=== PATIENT | male | born 1965 | race Caucasian/White ===

== ENCOUNTER 2025-09-10 05:14 | Inpatient (IN) | payer MEDICARE, MEDICAID ==
[2025-09-10 06:00] LABS: #Basophils 0.08 10x3/uL (0.0-0.2); #Eosinophils 0.17 10x3/uL (0.0-0.7); #Monocytes 0.89 10x3/uL (0.11-0.59); #Neutrophils 7.85 10x3/uL (1.40-6.50); %Basophils 0.8 % (0.0-1.0); %Eosinophils 1.6 % (0.0-10.0); %Lymphocytes 14.9 % (21.0-51.0); %Monocytes 8.4 % (0.0-10.0); %Neutrophils 73.7 % (42.0-75.0); Hematocrit 38.6 % (42.0-52.0); Hemoglobin 12.3 g/dL (14.0-18.0); Mean Corpuscular Hemoglobin 28.4 pg (27.0-31.0); Mean Corpuscular Volume 89.1 fL (78.0-98.0); Platelet Count 267 10x3/uL (130-400); Red Blood Cell (RBC) Count 4.33 mill/uL (4.70-6.10); White Blood Cell (WBC) Count 10.64 10x3/uL (4.8-10.8)
[2025-09-10 06:16] LABS: ALT (SGPT) 7 U/L (Less than 45); AST (SGOT) 23 U/L (11-34); Albumin 3.8 g/dL (3.1-4.5); Alkaline Phosphatase 70 U/L (40-110); Anion Gap 16 mmol/L (10-20); BUN (Urea Nitrogen) 11 mg/dL (8.4-25.7); Bilirubin, Total 0.5 mg/dL (0.3-1.2); Calc. Creatinine Clearance 0 mL/min (70-130); Calcium 9.4 mg/dL (7.8-10.44); Carbon Dioxide 25 mmol/L (22-29); Chloride 98 mmol/L (98-107); Globulin 3.6 g/dL (2.4-3.5); Glucose 116 mg/dL (70-105); Potassium 4.6 mmol/L (3.5-5.1); Sodium 134 mmol/L (136-145)
[2025-09-10] MEDS ORDERED: Albuterol 2.5 MG (3 mL) NEB ONE (06:25)
[2025-09-10] MEDS ORDERED: cefTRIAXone (ROCEPHIN) 2 GM VIAL ONE (07:22)
[2025-09-10] MEDS ORDERED: Ketorolac Tromethamine 30 MG (1 mL) VIAL ONE (07:56)
[2025-09-10] MEDS ORDERED: Acetaminophen 325 MG TAB PO PRN (08:48)
[2025-09-10] MEDS ORDERED: Calcium Carbonate 500 MG ChewTAB PO PRN (08:48)
[2025-09-10] MEDS ORDERED: Senokot S 8.6-50 MG TAB PO PRN (08:48)
[2025-09-10] MEDS ORDERED: Melatonin 3 MG TAB PO PRN (08:48)
[2025-09-10] MEDS ORDERED: Ondansetron PF 4 MG/2 ML Vial IVP PRN (08:48)
[2025-09-10 09:02] VITALS: BMI 29.9
[2025-09-10] MEDS: Famotidine 20 MG TAB PO SCH (09:55)
[2025-09-10] MEDS: Aspirin 81 mg Enteric Coated Tablet PO SCH (09:55)
[2025-09-10] MEDS: Divalproex Sodium 250 MG DR.TAB PO SCH (09:55)
[2025-09-10] MEDS ORDERED: Divalproex Sodium 250 MG DR.TAB ONE (10:04)
[2025-09-10] MEDS ORDERED: Aspirin Chewable 81 MG TAB ONE (10:05)
[2025-09-10] MEDS ORDERED: Famotidine 20 MG TAB ONE (10:05)
[2025-09-10] MEDS ORDERED: Lisinopril 20 MG TAB ONE (10:05)
[2025-09-10] MEDS ORDERED: Sertraline 100 MG TAB ONE (10:05)
[2025-09-10] MEDS: Lisinopril 20 MG TAB PO SCH (10:18)
[2025-09-10] MEDS: Sertraline 100 MG TAB PO SCH (10:19)
[2025-09-10] MEDS: Acetaminophen/Codeine 30-300mg Tablet PO PRN (12:22)
[2025-09-10] MEDS: oxyCODONE 5 MG TAB PO PRN (13:28)
[2025-09-10] MEDS: Gabapentin 400 MG CAP PO SCH (13:28)
[2025-09-10] MEDS ORDERED: FLU (Fluarix Triv) 25-26 (6MOS UP)/PF 45 MCG/0.5 ML Syringe IM ONE (14:00)
[2025-09-10] MEDS: Magnesium 2 GM/50 ML(in water) 2 GM in Premix 1 BAG IVPB SCH (15:17)
[2025-09-11 05:55] LABS: #Basophils 0.03 10x3/uL (0.0-0.2); #Eosinophils Less than 0.03 10x3/uL (0.0-0.7); #Monocytes 0.93 10x3/uL (0.11-0.59); #Neutrophils 10.44 10x3/uL (1.40-6.50); %Basophils 0.2 % (0.0-1.0); %Eosinophils 0.0 % (0.0-10.0); %Lymphocytes 13.0 % (21.0-51.0); %Monocytes 7.0 % (0.0-10.0); %Neutrophils 79.0 % (42.0-75.0); Hematocrit 37.2 % (42.0-52.0); Hemoglobin 12.3 g/dL (14.0-18.0); Mean Corpuscular Hemoglobin 28.9 pg (27.0-31.0); Mean Corpuscular Volume 87.5 fL (78.0-98.0); Platelet Count 279 10x3/uL (130-400); Red Blood Cell (RBC) Count 4.25 mill/uL (4.70-6.10); White Blood Cell (WBC) Count 13.22 10x3/uL (4.8-10.8)
[2025-09-11 06:17] LABS: Anion Gap 13 mmol/L (10-20); BUN (Urea Nitrogen) 18 mg/dL (8.4-25.7); Calc. Creatinine Clearance 136 mL/min (70-130); Calcium 9.3 mg/dL (7.8-10.44); Carbon Dioxide 28 mmol/L (22-29); Chloride 99 mmol/L (98-107); Glucose 113 mg/dL (70-105); Potassium 5.0 mmol/L (3.5-5.1); Sodium 135 mmol/L (136-145)
[2025-09-11] MEDS: Lisinopril 20 MG TAB PO SCH (08:35)
[2025-09-11] MEDS: Sertraline 100 MG TAB PO SCH (08:35)
[2025-09-11] MEDS: cefTRIAXone\\ROCEPHIN 1 GM in Sodium Chloride 0.9% 100 ML IVPB SCH (08:36)
[2025-09-11] MEDS: Ipratropium Bromide 2.5 ml Neb NEB SCH (14:06)
[2025-09-11] MEDS: Enoxaparin 40 MG (0.4 mL) SYRINGE SC SCH (22:49)
[2025-09-12] MEDS: GUAIFENESIN SF SOLN 200 MG/10 ML UDCUP PO PRN (04:40)
[2025-09-12 05:17] LABS: #Basophils 0.03 10x3/uL (0.0-0.2); #Eosinophils Less than 0.03 10x3/uL (0.0-0.7); #Monocytes 0.88 10x3/uL (0.11-0.59); #Neutrophils 10.39 10x3/uL (1.40-6.50); %Basophils 0.2 % (0.0-1.0); %Eosinophils 0.0 % (0.0-10.0); %Lymphocytes 17.8 % (21.0-51.0); %Monocytes 6.3 % (0.0-10.0); %Neutrophils 74.8 % (42.0-75.0); Hematocrit 37.9 % (42.0-52.0); Hemoglobin 12.6 g/dL (14.0-18.0); Mean Corpuscular Hemoglobin 29.2 pg (27.0-31.0); Mean Corpuscular Volume 87.7 fL (78.0-98.0); Platelet Count 341 10x3/uL (130-400); Red Blood Cell (RBC) Count 4.32 mill/uL (4.70-6.10); White Blood Cell (WBC) Count 13.90 10x3/uL (4.8-10.8)
[2025-09-12 05:27] LABS: Anion Gap 13 mmol/L (10-20); BUN (Urea Nitrogen) 24 mg/dL (8.4-25.7); Calc. Creatinine Clearance 144 mL/min (70-130); Calcium 9.4 mg/dL (7.8-10.44); Carbon Dioxide 26 mmol/L (22-29); Chloride 98 mmol/L (98-107); Glucose 101 mg/dL (70-105); Magnesium 2.2 mg/dL (1.6-2.6); Potassium 4.4 mmol/L (3.5-5.1); Sodium 133 mmol/L (136-145)
[2025-09-12 08:34] VITALS: TEMP 98
[2025-09-12 15:54] VITALS: BP 118/73
== END 2025-09-12 16:00 | DRG 191 ==
LOC: ERS 05:14 → ERHOLD 07:47 → T4-B 07:47 → OBSVTOIN 09-11 13:39
PROVIDERS: ADMIT Internal Medicine; ATTEND Internal Medicine
DX: J44.1 Chronic obstructive pulmonary disease with (acute) exacerbation (principal); J96.11 Chronic respiratory failure with hypoxia; I10 Essential (primary) hypertension; E78.5 Hyperlipidemia, unspecified; Z86.73 Personal history of transient ischemic attack (TIA), and cerebral infarction without residual deficits; F17.210 Nicotine dependence, cigarettes, uncomplicated; Z88.5 Allergy status to narcotic agent; N40.0 Benign prostatic hyperplasia without lower urinary tract symptoms; F41.9 Anxiety disorder, unspecified; Z98.890 Other specified postprocedural states; Z90.3 Acquired absence of stomach [part of]; Z98.1 Arthrodesis status; G89.29 Other chronic pain; Z71.6 Tobacco abuse counseling; Z99.81 Dependence on supplemental oxygen; G25.81 Restless legs syndrome; G47.00 Insomnia, unspecified; F32.A Depression, unspecified; Z79.899 Other long term (current) drug therapy
CPT/HCPCS: 36415; 71045; 71250; 80048; 80053; 83735; 83880; 84484; 85025; 93005; 94640; 94760; 96365; 96366; 96367; 96375; 96376; G0378; J0696; J1650; J1885; J2919; J3475; J7611; J7644